=== PATIENT | male | born 1950 | race Caucasian/White ===

== ENCOUNTER 2016-10-24 11:37 | Day surgery (SDC) | payer MEDICARE, OTHER ==
[2016-10-23 11:07] LABS: BASOPHILS 0.4 %; BASOPHILS ABSOLUTE 0.02 10/3/uL (0.0-0.16); EOSINOPHILS 1.2 %; EOSINOPHILS ABSOLUTE 0.06 10/3/uL (0.0-0.53); HEMATOCRIT 45.3 % (40.0-51.0); HEMOGLOBIN 15.3 g/dL (13.6-17.8); IMMATURE GRANULOCYTES 0.2 %; IMMATURE GRANULOCYTES ABSOLUTE 0.01 10/3/uL (0.0-0.11); LYMPHOCYTES 31.9 %; MANUAL DIFF NO %; MEAN CORPUS HGB CONC 33.8 g/dL (32.0-36.0); MEAN CORPUSCULAR HEMOGLOB 32.6 pg (26.0-34.0); MEAN CORPUSCULAR VOLUME 96.6 fL (80-100); MEAN PLATELET VOLUME 10.3 fL (9.2-13.0); MONOCYTES 12.6 %; MONOCYTES ABSOLUTE 0.63 10/3/uL (0.21-1.20); NEUTROPHILS 53.7 %; NEUTROPHILS ABSOLUTE 2.69 10/3/uL (2.02-8.40); PLATELET COUNT 240 10/3/uL (150-400); RBC DISTRIBUTION WIDTH 12.6 % (12.0-16.0); RED CELL COUNT 4.69 10/6/uL (4.7-6.1)
--- NOTE | ~2016-10-24 | OP ---
Record Of Operation [facility] [address] [place]. [address] NAME: CARI MANLEY : 52 STATUS : [facility]#: [id number] AGE: 66 ADM/REG DATE : 10/24/16 MR#: [id number] REPORT SERV DATE: 10/25/16 DICTATED BY: LISA GRISSOM III DATE: 10/24/16 REPORT STATUS : Draft TRANSCRIBED BY: MODJodie DATE: 10/24/16 DATE OF PROCEDURE: 10/24/2016 PREOPERATIVE DIAGNOSIS: Enlarging symptomatic soft tissue neoplasm of posterior neck. POSTOPERATIVE DIAGNOSIS: Enlarging symptomatic soft tissue neoplasm of posterior neck. PROCEDURE: Resection of large soft tissue neoplasm from posterior neck. SURGEON: Lisa Grissom M.D. ANESTHESIA: General with intubation. COMPLICATIONS: None. ESTIMATED BLOOD LOSS: Less than 5 mL. SPECIMENS: Mass from posterior neck. DRAINS: None. LAP AND SPONGE COUNT: Correct x3. BRIEF HISTORY: This 66-year-old male presented with an enlarging symptomatic soft tissue mass over the posterior neck. It was felt that resection of this mass was indicated for both diagnostic and therapeutic reasons. This procedure, the risks, benefits, and alternatives, including not limited to the risk for bleeding, infection, pain, swelling, scarring, or deformity to the area, seroma formation, hematoma formation, nerve injury, chronic paresthesia, pain, numbness, neuralgia or neuroma, nerve injury, muscle weakness or paralysis in muscles of upper back or shoulder, and unforeseen complications including deep venous thrombosis, pulmonary embolus, myocardial infarction, stroke, pneumonia, and , were fully explained to the patient prior to surgery. His questions were answered. He understood the risks and agreed to surgery as planned. DESCRIPTION OF PROCEDURE: After being properly identified and after discussing the risks of surgery with him again in the preoperative area and after identifying the mass with him in the preoperative area, the patient was taken to the operating room and placed in the supine position on a stretcher adjacent to the operating room table. General anesthesia was administered. He was intubated without difficulty. He was then carefully rolled into the prone position on the operating room table. Appropriate pads were placed beneath his chest and extremities. The upper back and neck areas were prepped and draped sterilely in the usual fashion. After an appropriate "time-out" per JCAHO standards, a horizontally oriented incision was made over the mass. The incision was continued through the subcutaneous tissue. Hemostasis was controlled with cautery. A well-defined and well-encapsulated mass was identified. This Record Of Operation [facility] [address] [place]. [address] NAME: CARI MANLEY : 52 STATUS : [facility] PAT#: [id number] AGE: 66 ADM/REG DATE : 10/24/16 MR#: [id number] REPORT SERV DATE: 10/25/16 DICTATED BY: LISA GRISSOM III DATE: 10/24/16 REPORT STATUS : Draft TRANSCRIBED BY: MODL DATE: 10/24/16 mass was completely resected. At no point, any neurovascular structures encountered or injured. The mass was some 6 cm in size and again was completely resected. The wound was irrigated copiously with saline. Hemostasis was assured. The subcutaneous tissue was closed with interrupted 3-0 Vicryl sutures. The skin was closed with running subcuticular 4 0 Monocryl stitch. The incision was injected with 0.5% Marcaine. Dressings were applied. Anesthesia was reversed. The patient was taken to the recovery room in stable condition. He tolerated the procedure well. His family was informed of results of surgery. The patient was discharged when stable and comfortable. His family was advised to keep the wound clean and dry for 48 hours, that he should not drive for three to four days after surgery or while using narcotics, and that he should resume his usual medications. He was asked to return in two weeks for followup or sooner if any fever, chills, wound drainage, or other problems prior to that time. He was given a prescription for Percocet 7.5 one t.i.d., #12, as needed for pain, which he was advised not to use while driving. NEETA/ARACELI Lisa Grissom III, M.D. / [id number] CC: Jelani Ivan III, M.D.
--- NOTE | ~2016-10-24 | PREOPHP ---
PreOp History and Physical [facility] [address] [place]. [address] NAME: CARI MANLEY : 52 STATUS : [facility] PAT#: [id number] AGE: 66 ADM/REG DATE : MR#: [id number] REPORT SERV DATE: 10/24/16 DICTATED BY: LISA LORENZ III DATE: 10/19/16 REPORT STATUS : Draft TRANSCRIBED BY: MODJodie DATE: 10/19/16 HISTORY OF PRESENT ILLNESS: This 66-year-old male comes to the operating room for resection of an enlarging soft tissue mass over his posterior neck. The patient has a mass over his posterior neck which has been present for several years. This has been increasing in size. It was previously resected 35 years ago. He comes now for resection of this mass. PAST MEDICAL HISTORY: Essentially unremarkable. MEDICATIONS: Aspirin. ALLERGIES: NONE. PAST SURGICAL HISTORY: Status post hernia repair. FAMILY HISTORY: Unremarkable. SOCIAL HISTORY: No history of tobacco or alcohol use. REVIEW OF SYSTEMS: The patient's 14-point review of systems is otherwise unremarkable. PHYSICAL EXAMINATION: OBJECTIVE: GENERAL: Physical exam reveals a large obese male, in no acute distress. He is alert and oriented x3. VITAL SIGNS: Blood pressure 135/69, pulse 51, and temperature 98. HEENT: Unremarkable except for a large soft tissue mass over the posterior neck that measures 7 cm in size. It is soft, mobile, and nontender. LUNGS: Clear. CARDIAC: Normal. EXTREMITIES: Normal. ASSESSMENT: 1. A 66-year-old male with enlarging symptomatic soft tissue mass over the posterior neck. 2. Obesity. PLAN: The patient comes to the operating room now for resection of this mass. This procedure, the risks, benefits, and alternatives, including but not limited to the risk of bleeding, infection, pain, swelling, scarring, and deformity to the area, seroma formation, hematoma formation, nerve injury, chronic paresthesia, pain, numbness, neuralgia or neuroma, nerve injury with muscle weakness or paralysis of the muscles of the upper back or shoulder, and unforeseen complications including deep venous thrombosis, pulmonary embolus, myocardial infarction, stroke, pneumonia, and , have explained to the patient prior to surgery. All his questions have been answered. He understands the risks and agrees to the surgery as planned. PreOp History and Physical [place] [place] [id number] [place] [address] NAME: CARI MANLEY : 52 STATUS : [facility] PAT#: [id number] AGE: 66 ADM/REG DATE : MR#: [id number] REPORT SERV DATE: 10/24/16 DICTATED BY: LISA LORENZ III DATE: 10/19/16 REPORT STATUS : Draft TRANSCRIBED BY: ARACELI DATE: 10/19/16 Randy/ARACELI Lisa Lorenz III, M.D. / [id number]
== END 2016-10-24 16:37 | disposition home or self-care (01) ==
LOC: SDC 11:37
PROVIDERS: Surgery
PROC: 0JB50ZZ Excision of Left Neck Subcutaneous Tissue and Fascia, Open Approach (ICD-10-PCS; principal; 2016-10-24 13:30)
DX: L72.8 Other follicular cysts of the skin and subcutaneous tissue (principal); Z98.890 Other specified postprocedural states; Z98.41 Cataract extraction status, right eye; Z98.42 Cataract extraction status, left eye; Z96.1 Presence of intraocular lens; Z87.442 Personal history of urinary calculi
CPT/HCPCS: 85025; 88304; 93005; J0690; J2250; J2405; J2710; J3010